=== PATIENT | female | born 1995 | race Hispanic/Latino ===

== ENCOUNTER 2017-05-15 20:09 | Observation (INO) | payer MEDICAID ==
[2017-05-15 20:18] VITALS: BMI 31.7
[2017-05-15] MEDS ORDERED: Sodium Chloride 0.9% 1,000 ML IV STA (20:54)
--- NOTE | 2017-05-15 21:10 | ED PDOC ---
Arrival/HPI - General Historian: Patient <Mihai Montes - Last Filed: 05/15/17 22:40> <Nir Wu - Last Filed: 05/15/17 22:55> - General Chief Complaint: Chest Pain Time Seen by Provider: 05/15/17 20:12 - History of Present Illness Narrative History of Present Illness (Text): 05/15/17 21:04 Ms. Freedman is a 22 year old female with no past medical history who presents with persistent fever for the past 6 days. Patient states that she has had a fever with temperatures of 100.4 every day with the highest temp being recorded as 102F on Monday. Pt reports having cold sweats, myalgias, headache, and episodes of vomiting. Pt reports having some shortness of breath and chest tightness the past few days. Pt reports her roomate has been sick in the past week but her symptoms of cough and fever resolved after a few days. She denies any recent travel and reports being updated on all vaccinations. (Mihai Montes) Past Medical History - Provider Review Nursing Documentation Reviewed: Yes - Past History Past History: No Previous - Infectious Disease Hx of Infectious Diseases: None - Psychiatric Hx Substance Use: No - Surgical History Hx Tonsillectomy: Yes - Anesthesia Hx Anesthesia: Yes Hx Anesthesia Reactions: No Hx Malignant Hyperthermia: No <Mihai Montes - Last Filed: 05/15/17 22:40> Family/Social History - Physician Review Nursing Documentation Reviewed: Yes Family/Social History: No Known Family HX Smoking Status: Never Smoked Hx Alcohol Use: Yes Hx Substance Use: No <Mihai Montes - Last Filed: 05/15/17 22:40> Allergies/Home Meds <Mihai Montes - Last Filed: 05/15/17 22:40> <Nir Wu - Last Filed: 05/15/17 22:55> Allergies/Adverse Reactions: Allergies No Known Allergies Allergy (Verified 07/11/16 13:35) Home Medications: Home Meds Medication Instructions Recorded Confirmed No Known Home Med 05/15/17 05/15/17 Review of Systems - Physician Review All systems were reviewed & negative as marked: Yes - Review of Systems Constitutional: Fevers (6 day history) Respiratory: SOB Gastrointestinal: absent: Abdominal Pain, Diarrhea Neurological: Headache <Mihai Montes - Last Filed: 05/15/17 22:40> Physical Exam Vital Signs Reviewed: Yes Temperature: Febrile Blood Pressure: Normal Pulse: Tachycardic Respiratory Rate: Normal Appearance: Positive for: Well-Appearing Pain Distress: None Mental Status: Positive for: Alert and Oriented X 3 - Systems Exam Head: Present: Atraumatic, Normocephalic Pupils: Present: PERRL Extroacular Muscles: Present: EOMI Conjunctiva: Present: Normal Mouth: Present: Moist Mucous Membranes Pharnyx: Present: Normal. No: ERYTHEMA, EXUDATE, TONSILS ENLARGED Neck: Present: Normal Range of Motion. No: Meningeal Signs, MIDLINE TENDERNESS , Lymphadenopathy Respiratory/Chest: Present: Clear to Auscultation, Good Air Exchange. No: Respiratory Distress, Accessory Muscle Use Cardiovascular: Present: Regular Rate and Rhythm, Normal S1, S2. No: Murmurs Abdomen: Present: Normal Bowel Sounds. No: Distention, Peritoneal Signs Upper Extremity: Present: Normal Inspection. No: Cyanosis, Edema Lower Extremity: Present: Normal Inspection. No: Edema Neurological: Present: GCS=15, CN II-XII Intact, Speech Normal Skin: Present: Warm, Dry, Normal Color. No: Rashes Psychiatric: Present: Alert, Oriented x 3, Normal Insight, Normal Concentration <Mihai Montes - Last Filed: 05/15/17 22:40> Medical Decision Making - Lab Interpretations I have reviewed the lab results: Yes - EKG Interpretation Interpreted by ED Physician: Yes Type: 12 lead EKG <Mihai Montes - Last Filed: 05/15/17 22:40> <Nir Wu - Last Filed: 05/15/17 22:55> ED Course and Treatment: 05/15/17 21:12 Impression: Pt is a 22 year old female with no past medical history who complains of persistent fever for the past 6 days. Differential Diagnosis included but are not limited to: - Infection 2/2 viral etiology - Costochondritis - PE Plan: - CBC, CMP, D-Dimer - Zofran, Tylenol, IVF - EKG, CXR - Reassess and disposition Progress Notes: 05/15/17 21:17 05/15/17 22:40 spoke with admitting physician and is agreeable for obs with CTA or V/Q scan in the morning (Mihai Montes) A 22 year old female with fever. In agreement with resident note, which includes further HPI details. Patient was seen and evaluated with resident, came up with plan and treatment together. Fever, body aches, pleuritic chest pain. On exam, tachycardic. D Dimer positive. (Nir Wu) - Lab Interpretations Lab Results: 05/15/17 21:00 05/15/17 21:00 Lab Results 05/15/17 21:00: Sodium 139, Potassium 3.7, Chloride 101, Carbon Dioxide 27, Anion Gap 15, BUN 8, Creatinine 0.6, Est GFR ( Amer) > 60, Est GFR (Non- Af Amer) > 60, Random Glucose 124 H, Calcium 9.1, Total Bilirubin 1.2, AST 77 H , ALT 74 H, Alkaline Phosphatase 74, Total Protein 6.7, Albumin 3.7, Globulin 3.0, Albumin/Globulin Ratio 1.2 05/15/17 21:00: D-Dimer, Quantitative 2.43 H 05/15/17 21:00: WBC 3.0 L, RBC 3.98, Hgb 11.8 L, Hct 34.2 L, MCV 85.9, MCH 29.6 , MCHC 34.5, RDW 12.9, Plt Count 102 L, MPV 10.8, Gran % 47.2 L, Lymph % (Auto) 35.8 H, Lea % (Auto) 15.7 H, Eos % (Auto) 0.3 L, Baso % (Auto) 1.0, Gran # 1.41 , Lymph # 1.1 L, Lea # 0.5, Eos # 0.0, Baso # 0.03 - RAD Interpretation Radiology Orders: 05/15/17 20:54 CHEST TWO VIEWS (PA/LAT) [RAD] Stat - EKG Interpretation EKG Interpretation (Text): 05/15/17 22:41 NSR, Sinus tachycardia, no ST segment elevations or T wave inversions, unchanged from previous EKG (Mihai Montes) - Medication Orders Current Medication Orders: Discontinued Medications Sodium Chloride (Sodium Chloride 0.9%) 1,000 mls @ 999 mls/hr IV .Q1H1M STA Stop: 05/15/17 21:54 Last Admin: 05/15/17 21:23 Dose: 999 mls/hr Ketorolac Tromethamine (Toradol) 30 mg IVP STAT STA Stop: 05/15/17 21:17 Last Admin: 05/15/17 21:35 Dose: 30 mg Ondansetron HCl (Zofran Inj) 4 mg IVP STAT STA Stop: 05/15/17 20:55 Last Admin: 05/15/17 21:23 Dose: 4 mg - PA / MEAT CARRIER / Resident Statement /DO has reviewed & agrees with the documentation as recorded. /DO has examined the patient and agrees with the treatment plan. <Mihai Montes - Last Filed: 05/15/17 22:40> - Scribe Statement The provider has reviewed the documentation as recorded by the Scribe <Nir Wu - Last Filed: 05/15/17 22:55> - Scribe Statement Debbie Lakhani Provider Scribe Attestation: All medical record entries made by the Scribe were at my direction and personally dictated by me. I have reviewed the chart and agree that the record accurately reflects my personal performance of the history, physical exam, medical decision making, and the department course for this patient. I have also personally directed, reviewed, and agree with the discharge instructions and disposition. (Nir Wu) Disposition/Present on Arrival - Present on Arrival Any Indicators Present on Arrival: No History of DVT/PE: No History of Uncontrolled Diabetes: No Urinary Catheter: No History of Decub. Ulcer: No History Surgical Site Infection Following: None - Disposition Have Diagnosis and Disposition been Completed?: Yes Disposition Time: 22:40 Patient Plan: Observation <Mihai Montes - Last Filed: 05/15/17 22:40> <Nir Wu - Last Filed: 05/15/17 22:55> - Disposition Diagnosis: Elevated d-dimer Disposition: HOSPITALIZED Patient Problems: Current Active Problems Problem Status Onset Elevated d-dimer Acute Condition: STABLE
[2017-05-15 21:34] LABS: ALB/GLOB RATIO 1.2 (1.1-1.8); ALBUMIN 3.7 g/dL (3.0-4.8); AST/SGOT 77 U/L (15-39); BLOOD UREA NITROGEN 8 mg/dL (7-21); GFR AFRICAN-AMERICAN > 60; GFR NON-AFRICAN AMERICAN > 60
[2017-05-15 21:42] LABS: BASO # 0.03 K/mm3 (0.0-2.0); EOS % 0.3 % (1.5-5.0); GRAN # 1.41 (1.4-6.5); GRAN % 47.2 % (50.0-68.0); HEMOGLOBIN 11.8 gm/dL (12.0-16.0); LYMPH # 1.1 (1.2-3.4); LYMPH % 35.8 % (22.0-35.0); MEAN CELL VOLUME 85.9 fL (80.0-105.0); MEAN CORPUSCULAR HEMOGLOBIN 29.6 pg (25.0-35.0); MEAN CORPUSCULAR HGB CONC 34.5 g/dl (31.0-37.0); MEAN PLATELET VOLUME 10.8 fl (7.0-11.0); MONO # 0.5 (0.1-0.6); MONO % 15.7 % (1.0-6.0); PLATELET COUNT 102 10^3/uL (120.0-450.0); RBC 3.98 10^6/uL (3.5-6.1); RED CELL DISTRIBUTION WIDTH 12.9 % (11.5-14.5)
[2017-05-15 21:46] LABS: ALT/SGPT 74 U/L (7-56); CALCIUM 9.1 mg/dL (8.4-10.5)
--- NOTE | 2017-05-15 22:57 | CP.PCM.HP ---
<EVELYN COELHO - Last Filed: 05/16/17 00:00> History of Present Illness - History of Present Illness History of Present Illness: Pt is a 22 yo F with no PMHx presents with persistent fever for the past 6 days. Pt states that her fever has ranged between 100-102F during this period. She states that over this time she has had intermittent episodes of nausea with NBNB vomiting x 2, SOB, chest tightness, tachycardia, cold sweats, body aches, LÓPEZ, and decreased appetite. Pt reports mild intermittent epigastric pain. Pt states that she has used Tylenol 500 mg and Advil 200 mg numerous times over the past 6 days to treat her LÓPEZ and fever, which provided minimal relief. Pt states that her roommate was sick recently with symptoms of cough and fever, but her illness was self-limiting and lasted only a few days. Pt denied any recent travel and is UTD on immunizations. Pt reports dark, foul-smelling urine during this time, but denied dysuria, polyuria, hematuria, constipation, or diarrhea. PMHx: Denied Surg: Tonsillectomy FHx: CAD, DM All: NKDA SH: Occasional EtOH use, denied tobacco or illicit drug use Present on Admission - Present on Admission Any Indicators Present on Admission: No Review of Systems - Review of Systems All systems: reviewed and no additional remarkable complaints except (12 point ROS negative other than that stated in HPI) Past Patient History - Infectious Disease Hx of Infectious Diseases: None - Past Social History Smoking Status: Never Smoked - PSYCHIATRIC Hx Substance Use: No - SURGICAL HISTORY Hx Tonsillectomy: Yes - ANESTHESIA Hx Anesthesia: Yes Hx Anesthesia Reactions: No Hx Malignant Hyperthermia: No Meds Allergies/Adverse Reactions: Allergies Allergy/AdvReac Type Severity Reaction Status Date / Time No Known Allergies Allergy Verified 07/11/16 13:35 Physical Exam - Constitutional Appears: No Acute Distress - Head Exam Head Exam: ATRAUMATIC, NORMOCEPHALIC - Eye Exam Eye Exam: EOMI, PERRL Pupil Exam: NORMAL ACCOMODATION, PERRL - ENT Exam ENT Exam: Mucous Membranes Moist - Neck Exam Neck exam: Positive for: Full Rom. Negative for: Lymphadenopathy, Tenderness, Thyromegaly - Respiratory Exam Respiratory Exam: Clear to Auscultation Bilateral. absent: Rales, Rhonchi, Wheezes - Cardiovascular Exam Cardiovascular Exam: Tachycardia, REGULAR RHYTHM, +S1, +S2. absent: Diastolic murmur, Gallop, Rubs, Systolic Murmur - GI/Abdominal Exam GI & Abdominal Exam: Soft. absent: Distended, Guarding, Organomegaly, Rebound, Tenderness - Neurological Exam Neurological exam: Alert, Oriented x3 - Psychiatric Exam Psychiatric exam: Normal Affect, Normal Mood - Skin Skin Exam: Diaphoretic, Intact, Normal Color, Warm Results - Vital Signs Recent Vital Signs: Last Vital Signs Temp 100.6 F H 05/15/17 20:22 Pulse 113 H 05/15/17 20:22 Resp 18 05/15/17 20:22 BP 137/86 05/15/17 20:25 Pulse Ox 98 05/15/17 20:22 - Labs Result Diagrams: 05/15/17 21:00 05/15/17 21:00 Assessment & Plan - Assessment and Plan (Free Text) Assessment: 22 yo F will be admitted for evaluation and treatment for an elevated D-Dimer and febrile illness. 1. Elevated D-Dimer -D-Dimer 2.43 -Correlate elevated D-dimer findings with V/Q scan (CTA unavailable currently) -Lovenox 1 mg/kg SC BID 2. Febrile Illness -ID consulted -Possibly due to UTI -F/u pancultures, UA, UPT -Rocephin 1 gm -IVF @125 3. Mild transaminitis -Likely due to excessive tylenol use -F/u tylenol lvl 4. GI/DVT PPx -Pepcid -SCDs Pt was seen and discussed in detail with Dr. Larson. <Curt Larson - Last Filed: 05/16/17 03:56> Results - Vital Signs Recent Vital Signs: Last Vital Signs Temp 97.8 F 05/16/17 02:27 Pulse 76 05/16/17 02:27 Resp 16 05/16/17 02:27 BP 114/76 05/16/17 02:27 Pulse Ox 99 05/16/17 02:27 - Labs Result Diagrams: 05/15/17 21:00 05/15/17 21:00 Labs: Laboratory Results - last 24 hr 05/15/17 23:30 Acetaminophen < 10.0 L Attending/Attestation - Attestation I have personally seen and examined this patient.: Yes I have fully participated in the care of the patient.: Yes I have reviewed all pertinent clinical information: Yes Notes (Text): 05/16/17 03:56 Patient was seen when she was in -02. Agree with history,physical examination, assessment and plan.
[2017-05-15] MEDS ORDERED: cefTRIAXone 1 gm 1 GM/100 ML BAG IVPB STA (23:38)
[2017-05-15] MEDS ORDERED: Enoxaparin 100 mg Syringe SC SCH (23:45)
[2017-05-15] MEDS ORDERED: Sodium Chloride 0.9% 1,000 ML IV SCH (23:45)
[2017-05-16 00:28] LABS: PH,URINE 6.5 (4.7-8.0); URINE APPEARANCE SL CLOUDY (CLEAR); URINE BILIRUBIN NEGATIVE (NEGATIVE); URINE BLOOD NEGATIVE (NEGATIVE); URINE COLOR STRAW (YELLOW); URINE GLUCOSE (UA) NEGATIVE (NEGATIVE); URINE LEUKOCYTE ESTERASE SMALL Leu/uL (NEGATIVE); URINE NITRATE NEGATIVE (NEGATIVE); URINE PROTEIN NEGATIVE mg/dL (<30 mg/dL); URINE UROBILINOGEN 0.2 E.U./dL (<1 E.U./dL)
[2017-05-16 00:52] LABS: URINE BACTERIA SMALL (NEG); URINE RBC 0 - 2 /hpf (0-2)
--- NOTE | 2017-05-16 02:03 | CP.PCM.PN ---
Subjective - Date & Time of Evaluation Date of Evaluation: 05/16/17 Time of Evaluation: 02:02 - Subjective Subjective: CT Scan allegedly out of order. Objective - Vital Signs/Intake and Output Vital Signs (last 24 hours): Temp Pulse Resp BP Pulse Ox 98.4 F 86 16 107/67 99 05/15/17 22:53 05/15/17 22:53 05/15/17 22:53 05/15/17 22:53 05/15/17 22:53 - Medications Medications: Current Medications Enoxaparin Sodium (Lovenox) 90 mg SC Q12H AVA PRN Reason: Protocol Last Admin: 05/16/17 00:22 Dose: 90 mg Famotidine (Pepcid) 40 mg PO HS AVA Last Admin: 05/16/17 00:21 Dose: 40 mg Sodium Chloride (Sodium Chloride 0.9%) 1,000 mls @ 125 mls/hr IV .Q8H AVA Ondansetron HCl (Zofran Inj) 4 mg IVP Q6H PRN PRN Reason: Nausea/Vomiting
[2017-05-16 07:06] LABS: MAGNESIUM 1.9 mg/dL (1.7-2.2)
[2017-05-16 07:11] LABS: HEMOGLOBIN 11.1 gm/dL (12.0-16.0); MEAN CELL VOLUME 86.6 fL (80.0-105.0); MEAN CORPUSCULAR HEMOGLOBIN 29.8 pg (25.0-35.0); MEAN CORPUSCULAR HGB CONC 34.4 g/dl (31.0-37.0); MEAN PLATELET VOLUME 10.8 fl (7.0-11.0); RBC 3.73 10^6/uL (3.5-6.1); RED CELL DISTRIBUTION WIDTH 13.1 % (11.5-14.5)
[2017-05-16 07:12] LABS: TROPONIN I < 0.01 ng/mL
[2017-05-16 07:22] LABS: WHITE BLOOD COUNT 2.8 10^3/ul (4.5-11.0)
--- NOTE | 2017-05-16 07:54 | RAD ---
HISTORY: tachycardia COMPARISON: No prior. TECHNIQUE: Chest PA and lateral FINDINGS: LUNGS: The lungs are well inflated and clear. PLEURA: No significant pleural effusion identified. No pneumothorax apparent. CARDIOVASCULAR: Normal. OSSEOUS STRUCTURES: No significant abnormalities. VISUALIZED UPPER ABDOMEN: Normal. OTHER FINDINGS: None. IMPRESSION: No active pulmonary disease.
--- NOTE | 2017-05-16 09:56 | US ---
HISTORY: Leg pain and swelling. Evaluate for DVT PHYSICIAN(S): Trever Sosa MD. TECHNIQUE: Duplex sonography and color-flow Doppler with graded compression were used to evaluate the deep venous systems of both lower extremities. FINDINGS: The visualized deep venous systems of both lower extremities are sonographically normal and compressible. Normal wave forms and augmentation are seen. There is no sonographic evidence for deep venous thrombosis in the visualized segments of both lower extremities. IMPRESSION: No sonographic evidence for deep venous thrombosis in the visualized segments of both lower extremities.
[2017-05-16 10:22] LABS: BARBITURATES, UR NEGATIVE (NEGATIVE); BENZODIAZEPINES, UR NEGATIVE (NEGATIVE); OPIATES, UR NEGATIVE (NEGATIVE); PHENCYCLIDINE, UR NEGATIVE (NEGATIVE)
[2017-05-16 12:15] LABS: HEPATITIS B SURFACE AG NEGATIVE (NEGATIVE)
[2017-05-16 12:21] LABS: HEPATITIS A IGM NEGATIVE (NEGATIVE); HEPATITIS B CORE AB NEGATIVE (NEGATIVE)
[2017-05-16 12:32] LABS: HEPATITIS C ANTIBODY NEGATIVE (NEGATIVE)
--- NOTE | 2017-05-16 16:48 | CARD ---
APPROVED REPORT EKG Measurement Heart [id number] <Conclusion> Sinus tachycardia Possible Left atrial enlargement Incomplete right bundle branch block Borderline ECG
--- NOTE | 2017-05-16 17:34 | CP.PCM.CON ---
History of Present Illness - History of Present Illness History of Present Illness: Infectious Disease Consultation: May 16, 2017 22 yo female with persistent fevers for the past 6 days. Over this course of time, she complained of intermittent episodes of nausea with NBNB vomiting x 2, SOB, chest tightness, tachycardia, cold sweats, body aches, LÓPEZ, and decreased appetite. Fevers were as high as 102 F. She was admitted with 100.6 F and has been afebrile since. The patient urine cultures and analysis were done. Possible UTI. Patient had leukopenia. Patient denies any recent travel. She denies any chronic medical history. PMHx: Denies PSHx: Tonsillectomy Allergies: NKDA Social Hx: No tobacco, No illicit drug use Occasional EtOH Active Medications Famotidine (Pepcid) 40 mg PO HS [facility] Last Admin: 05/16/17 00:21 Dose: 40 mg Sodium Chloride (Sodium Chloride 0.9%) 1,000 mls @ 125 mls/hr IV .Q8H [facility] Last Admin: 05/16/17 02:30 Dose: 125 mls/hr Ondansetron HCl (Zofran Inj) 4 mg IVP Q6H PRN PRN Reason: Nausea/Vomiting Family Hx: CAD, DM ROS: Fevers, nausea, vomiting, SOB, chest tightness, tachycardia, cold sweats, body aches, headaches, and decreased appetite. No abdominal pain, diarrhea, melena, hematuria, hematemesis, hematochezia, depression. Past Patient History - Infectious Disease Hx of Infectious Diseases: None - Past Social History Smoking Status: Never Smoked - CARDIAC Hx Cardiac Disorders: No - PULMONARY Hx Respiratory Disorders: No - NEUROLOGICAL Hx Neurological Disorder: No - HEENT Hx HEENT Problems: No - RENAL Hx Chronic Kidney Disease: No - ENDOCRINE/METABOLIC Hx Endocrine Disorders: No - HEMATOLOGICAL/ONCOLOGICAL Hx Blood Disorders: No - INTEGUMENTARY Hx Dermatological Problems: No - MUSCULOSKELETAL/RHEUMATOLOGICAL Hx Musculoskeletal Disorders: No Hx Falls: No - GASTROINTESTINAL Hx Gastrointestinal Disorders: No - GENITOURINARY/GYNECOLOGICAL Hx Genitourinary Disorders: No - PSYCHIATRIC Hx Psychophysiologic Disorder: No Hx Substance Use: No - SURGICAL HISTORY Hx Surgeries: Yes Other/Comment: tonsillectomy - ANESTHESIA Hx Anesthesia: Yes Hx Anesthesia Reactions: No Hx Malignant Hyperthermia: No Meds Allergies/Adverse Reactions: Allergies Allergy/AdvReac Type Severity Reaction Status Date / Time No Known Allergies Allergy Verified 07/11/16 13:35 - Medications Medications: Current Medications Famotidine (Pepcid) 40 mg PO HS [facility] Last Admin: 05/16/17 00:21 Dose: 40 mg Sodium Chloride (Sodium Chloride 0.9%) 1,000 mls @ 125 mls/hr IV .Q8H [facility] Last Admin: 05/16/17 02:30 Dose: 125 mls/hr Ondansetron HCl (Zofran Inj) 4 mg IVP Q6H PRN PRN Reason: Nausea/Vomiting Physical Exam - Constitutional Appears: Non-toxic, No Acute Distress - Head Exam Head Exam: ATRAUMATIC, NORMOCEPHALIC - Eye Exam Eye Exam: EOMI, PERRL Pupil Exam: NORMAL ACCOMODATION, PERRL - ENT Exam ENT Exam: Mucous Membranes Moist, Normal External Ear Exam, TM's Normal Bilaterally - Neck Exam Neck exam: Positive for: Full Rom, Normal Inspection - Respiratory Exam Respiratory Exam: Clear to Auscultation Bilateral, NORMAL BREATHING PATTERN. absent: Rales, Rhonchi, Wheezes - Cardiovascular Exam Cardiovascular Exam: REGULAR RHYTHM, RRR, +S1, +S2 - GI/Abdominal Exam GI & Abdominal Exam: Normal Bowel Sounds, Soft. absent: Distended, Tenderness - Extremities Exam Extremities exam: Positive for: full ROM, normal inspection - Neurological Exam Neurological exam: Alert, CN II-XII Intact, Normal Gait, Oriented x3 - Psychiatric Exam Psychiatric exam: Normal Affect, Normal Mood - Skin Skin Exam: Intact, Normal Color Results - Vital Signs Recent Vital Signs: Last Vital Signs Temp 98.4 F 05/16/17 17:14 Pulse 77 05/16/17 17:14 Resp 20 05/16/17 17:14 BP 124/86 05/16/17 17:14 Pulse Ox 99 05/16/17 08:35 - Labs Result Diagrams: 05/16/17 06:40 05/15/17 21:00 Labs: Laboratory Results - last 24 hr 05/15/17 05/16/17 05/16/17 23:30 06:30 06:40 WBC 2.8 L* RBC 3.73 Hgb 11.1 L Hct 32.3 L MCV 86.6 MCH 29.8 MCHC 34.4 RDW 13.1 Plt Count 97 L MPV 10.8 Phosphorus Magnesium Troponin I Procalcitonin Urine Opiates Screen Urine Methadone Screen Acetaminophen < 10.0 L Ur Barbiturates Screen Ur Phencyclidine Scrn Ur Amphetamines Screen U Benzodiazepines Scrn U Oth Cocaine Metabols U Cannabinoids Screen Hepatitis A IgM Ab Negative Hep Bs Antigen Negative Hep B Core IgM Ab Negative Hepatitis C Antibody Negative Influenza Typ A,B (EIA) 05/16/17 05/16/17 05/16/17 06:40 07:30 08:00 WBC RBC Hgb Hct MCV MCH MCHC RDW Plt Count MPV Phosphorus 2.7 Magnesium 1.9 Troponin I < 0.01 Procalcitonin Urine Opiates Screen Negative Urine Methadone Screen Negative Acetaminophen Ur Barbiturates Screen Negative Ur Phencyclidine Scrn Negative Ur Amphetamines Screen Negative U Benzodiazepines Scrn Negative U Oth Cocaine Metabols Negative U Cannabinoids Screen Negative Hepatitis A IgM Ab Hep Bs Antigen Hep B Core IgM Ab Hepatitis C Antibody Influenza Typ A,B (EIA) Negative for flu a/b 05/16/17 08:57 WBC RBC Hgb Hct MCV MCH MCHC RDW Plt Count MPV Phosphorus Magnesium Troponin I Procalcitonin 0.09 L Urine Opiates Screen Urine Methadone Screen Acetaminophen Ur Barbiturates Screen Ur Phencyclidine Scrn Ur Amphetamines Screen U Benzodiazepines Scrn U Oth Cocaine Metabols U Cannabinoids Screen Hepatitis A IgM Ab Hep Bs Antigen Hep B Core IgM Ab Hepatitis C Antibody Influenza Typ A,B (EIA) Assessment & Plan - Assessment and Plan (Free Text) Assessment: 22 yo female with persistent fevers, elevated D-dimer, and mild transaminitis as well as leukopenia. The patient is awake and alert. She currently feels better now. Cannot rule of viral infection. Would check Influenza. Patient did have sick contact in roommate with similar symptoms but roommates symptoms lasted only 3 days. Question of UTI but patient did show signs of dehydration as well. Chest X-ray and DVT studies are negative. Urine studies are not impressive at this time. Would hold off on antibiotics for now... she did receive 1 dose of Rocephin on admission. Awaiti culture results. Check HIV status as well if not already done. Thank you for allowing me to participate in the care of the patient, we will follow with you.
[2017-05-17 06:19] VITALS: BP 113/72; PULSE 96; RESP 96; TEMP 100.4; O2SAT 97
[2017-05-17 07:12] LABS: HEMOGLOBIN 12.2 gm/dL (12.0-16.0); MEAN CELL VOLUME 86.9 fL (80.0-105.0); MEAN CORPUSCULAR HGB CONC 34.6 g/dl (31.0-37.0); MEAN PLATELET VOLUME 10.8 fl (7.0-11.0); RBC 4.06 10^6/uL (3.5-6.1); RED CELL DISTRIBUTION WIDTH 13.1 % (11.5-14.5); WHITE BLOOD COUNT 3.2 10^3/ul (4.5-11.0)
[2017-05-17 07:29] LABS: ALB/GLOB RATIO 1.2 (1.1-1.8); ALBUMIN 3.9 g/dL (3.0-4.8); ALT/SGPT 166 U/L (7-56); AST/SGOT 178 U/L (15-39); BLOOD UREA NITROGEN 4 mg/dL (7-21); CALCIUM 9.2 mg/dL (8.4-10.5); GFR AFRICAN-AMERICAN > 60; GFR NON-AFRICAN AMERICAN > 60
--- NOTE | 2017-05-17 16:22 | NM ---
COMPARISON: Chest x-ray 05/16/2017 TECHNIQUE: 30.0 mCi technetium 99-m DTPA aerosol. 3.2 mCI technetium 99-m MAA administered intravenously. FINDINGS: VENTILATION COMPONENT: Normal. PERFUSION COMPONENT: Normal.The report concurs with the preliminary [facility] report IMPRESSION: Lowprobability ventilation perfusion scan for pulmonary embolism.
== END 2017-05-17 10:20 | disposition left against medical advice (07) ==
LOC: ED 20:09 → ERH 22:36 → UNDOADMOB 22:36 → ERH 23:14 → 2RNO 05-16 03:17 → OBSVTOIN 05-17 10:17 → INTOOBSV 05-17 10:17 → UNDODISOB 05-17 10:20
PROVIDERS: ADMIT Internal Medicine; ATTEND Internal Medicine
DX: R50.9 Fever, unspecified (principal); E86.0 Dehydration; R11.2 Nausea with vomiting, unspecified; R10.13 Epigastric pain; R74.0 Nonspecific elevation of levels of transaminase and lactic acid dehydrogenase [LDH]; D72.819 Decreased white blood cell count, unspecified
CPT/HCPCS: 36415; 71020; 78582; 80053; 80074; 80324; 80329; 80345; 80346; 80349; 80353; 80358; 80361; 81001; 83735; 83992; 84100; 84145; 84443; 84484; 85025; 85027; 85378; 86609; 86703; 86710; 87040; 87086; 87804; 88112; 93005; 93970; 96361; 96365; 96372; 96375; 99285; G0378; J0696; J1650; J1885; J2405; J7040